=== PATIENT | female | born 1955 | race Caucasian/White ===

== ENCOUNTER → 2016-04-05 | Outpatient (CLI) | payer BC ==
[~2016-04-05] MED LIST: CTP/1 PO; VITA400C3 PO
--- NOTE | 2016-04-05 13:29 | MAMMOGRAPHY REPORT ---
BILATERAL DIGITAL SCREENING MAMMOGRAM WITH CAD: 04/05/2016 CLINICAL HISTORY: Routine screening. Patient has no complaints. TECHNIQUE: Bilateral CC, MLO and right cleavage views were obtained. Current study was also evalua mireya with a Computer Aided Detection (CAD) system. COMPARISON: Comparison is made to exams dated: 04/02/2015 mammogram, 03/27/2013 mammogram, 03/22/2012 mammogram, 09/15/2010 mammogram, 03/11/2010 mammogram, and 02/17/2009 mammogram - [facility]. BREAST COMPOSITION: There are scattered areas of fibroglandular density in both breasts. FINDINGS: There is a possible 6 mm obscured mass in the upper outer middle one third of the right b reast, for which additional spot compression tomosynthesis views and possibly ultrasound are recomme nded, although this could simply represent normal overlapping fibroglandular tissue. There is a benign rim calcification and minimal vascular calcification in the right breast. No other suspicious mass, architectural distortion or cluster of microcalcifications is seen. IMPRESSION: ACR BI-RADS CATEGORY 0: INCOMPLETE EVALUATION: NEED ADDITIONAL IMAGING EVALUATION The possible 6 mm obscured mass in the right breast needs additional evaluation. The patient will be called to schedule an appointment. Approximately 10% of breast cancers are not detected with mammography. A negative mammographic repor t should not delay biopsy if a clinically suggestive mass is present. Leyla Neri M.D. ay/:04/05/2016 08:44:29 Basting Marker: Alissa FAIRBANKS(Wade)([place]), [facility] letter sent: Addl Imaging 0 BI-RADS Code: ACR BI-RADS Category 0: Incomplete Evaluation: Need Additional Imaging Evaluation
== END | disposition home or self-care (01) ==
LOC: C.MAMM 07:13
PROVIDERS: ATTEND Family Medicine
DX: Z12.31 Encounter for screening mammogram for malignant neoplasm of breast (principal); N63 Unspecified lump in breast

== ENCOUNTER → 2016-04-11 | Outpatient (CLI) | payer BC ==
--- NOTE | 2016-04-11 13:33 | MAMMOGRAPHY REPORT ---
UNILATERAL RIGHT DIGITAL DIAGNOSTIC MAMMOGRAM AND TARGETED RIGHT ULTRASOUND: 04/11/2016 CLINICAL HISTORY: 61-year-old woman called back from screening mammography for right breast asymmetr y. No family history of breast cancer. TECHNIQUE: Spot compression CC and MLO 2-D digital and tomosynthesis images of the right breast wer e obtained. COMPARISON: Comparison is made to exams dated: 04/05/2016 mammogram, 04/02/2015 mammogram, 03/28/2014 mammogram, and 03/27/2013 mammogram - [facility]. BREAST COMPOSITION: There are scattered areas of fibroglandular density in the right breast. FINDINGS: Spot compression views of the right upper outer quadrant demonstrate complete effacement o f the possible mass versus focal asymmetry identified on the 04/05/2016 screening mammogram. No arc hitectural distortion or suspicious cluster of micro-calcifications are seen. There are minimal vas cular calcifications and a benign rim calcification in the superior right breast. Targeted ultrasound was performed in the superior right breast including the 8:00 axis. Normal dens e glandular tissue is seen in a band in the upper outer quadrant. No discrete solid or cystic mass is identified. IMPRESSION: ACR BI-RADS CATEGORY 2: BENIGN, TARGETED ULTRASOUND ACR BI-RADS CATEGORY 2: BENIGN Effacement of the right breast possible mass versus focal asymmetry, and no suspicious sonographic c orrelate. There is no mammographic or targeted sonographic evidence of malignancy. Return to annual mammogram screening schedule is recommended. The patient has been verbally notified of the results . Approximately 10% of breast cancers are not detected with mammography. A negative mammographic repor t should not delay biopsy if a clinically suggestive mass is present. Leyla Neri M.D. ay/:04/11/2016 10:44:29 Technology Development Intern: Claudia JOHNSON)([place]), [facility] letter sent: Normal / BI-RADS Code: ACR BI-RADS Category 2: Benign Ultrasound BI-RADS: ACR BI-RADS Category 2: Benign
== END | disposition home or self-care (01) ==
LOC: C.MAMM 09:56
PROVIDERS: ATTEND Family Medicine
DX: N63 Unspecified lump in breast (principal)

== ENCOUNTER → 2017-04-07 | Outpatient (CLI) | payer BC ==
--- NOTE | 2017-04-10 07:39 | MAMMOGRAPHY REPORT ---
BILATERAL DIGITAL SCREENING MAMMOGRAM TOMOSYNTHESIS WITH CAD: 04/07/2017 CLINICAL HISTORY: Routine screening. The patient has no current complaints. TECHNIQUE: Breast tomosynthesis in addition to standard 2D mammography was performed. Current study was also evaluated with a Computer Aided Detection (CAD) system. COMPARISON: Comparison is made to exams dated: 04/11/2016 ultrasound, 04/11/2016 mammogram, 04/05/2016 ma mmogram, 04/02/2015 mammogram, 03/27/2013 mammogram, and 03/28/2014 mammogram - [facility]. BREAST COMPOSITION: There are scattered areas of fibroglandular density in both breasts. FINDINGS: No suspicious masses, calcifications, or areas of architectural distortion are noted in ei ther breast. There has been no significant interval change compared to prior exams. IMPRESSION: ACR BI-RADS CATEGORY 1: NEGATIVE There is no mammographic evidence of malignancy. A 1 year screening mammogram is recommended. The pa tient will receive written notification of the results. Approximately 10% of breast cancers are not detected with mammography. A negative mammographic report should not delay biopsy if a clinically suggestive mass is present. Maryjane Daniel M.D. ah/:04/07/2017 07:38:43 Rn Disease Management: Olga FAIRBANKS([place])([place]), [facility] letter sent: Normal 1/2 BI-RADS Code: ACR BI-RADS Category 1: Negative
== END | disposition home or self-care (01) ==
LOC: C.MAMM 07:06
PROVIDERS: ATTEND Family Medicine
DX: Z12.31 Encounter for screening mammogram for malignant neoplasm of breast (principal)